=== PATIENT | female | born 1970 | race Two or more races ===

== ENCOUNTER 2025-05-21 04:12 | Emergency (ER) | payer BC ==
[~2025-05-21] VITALS: Ht 165.1 cm; Wt 99.8 kg
[2025-05-21] MEDS ORDERED: KETOROLAC TROMETHAMINE 15 MG/ML VIAL ONE (04:44)
[2025-05-21] MEDS ORDERED: MECLIZINE HCL 25 MG TABLET ONE (04:44)
[2025-05-21 05:01] LABS: PLATELET COUNT (AUTO) 327 K/uL (150-450); RED BLOOD CELL COUNT(AUTO) 4.89 MIL/uL (4.0-5.2); RED CELL DISTRIBUTION WIDTH 13.8 % (11.5-15.0); WHITE BLOOD COUNT (AUTO) 5.8 K/uL (4.3-11.0)
[2025-05-21] MEDS: KETOROLAC TROMETHAMINE 15 MG/ML VIAL IV ONE (05:04)
[2025-05-21] MEDS: IV NS 0.9% 1,000 ML BAG IV ONE (05:04)
[2025-05-21 05:08] LABS: CALCIUM, SERUM 9.3 mg/dL (8.5-10.1); CREATININE 1.0 mg/dL (0.6-1.3); SODIUM SERUM 143.0 mmol/L (136-145); UREA NITROGEN, BLOOD 13.0 mg/dL (7-18)
[2025-05-21] MEDS ORDERED: IOHEXOL-350 100 ML VIAL IV ONE (05:10)
[2025-05-21] MEDS ORDERED: CT SWABBABLE VALVE TRANS SET 1 EA INFUS.SET MC ONE (05:10)
[2025-05-21] MEDS ORDERED: IV NS 0.9% 250 ML IV ONE (05:11)
[2025-05-21 05:13] LABS: ASPARTATE AMINOTRANSFERASE 89.0 U/L (15-37); TOTAL PROTEIN, SERUM 7.6 g/dL (6.4-8.2)
[2025-05-21] MEDS: MECLIZINE HCL 12.5 MG TABLET PO ONE (05:29)
[2025-05-21 07:54] VITALS: BP 128/78; TEMP 97.9; O2SAT 98
== END 2025-05-21 07:54 | disposition home or self-care (01) ==
LOC: ER 04:19
DX: R42 Dizziness and giddiness (principal); M54.2 Cervicalgia; M62.838 Other muscle spasm; F90.9 Attention-deficit hyperactivity disorder, unspecified type
CPT/HCPCS: 99285; 70450; 96374; 96361; 93005; 70498; 70496; 85025; 36415; 80053; 82962; J1885; J8597; J7030; J7050; Q9967